=== PATIENT | male | born 1955 | race Caucasian/White ===

== ENCOUNTER 2017-06-30 11:29 | Emergency (ER) | payer OTHER ==
--- NOTE | 2017-06-30 12:11 | UC ---
[facility] HPI - HPI Summary HPI Summary: 61 YEAR OLD MALE PRESENTS WITH SEVERE RIGHT LOWER JAW PAIN SECONDARY TO A MOLAR ABSCESS. - History of Current Complaint Chief Complaint: UCDentalProblem Stated Complaint: SORE THROAT TOOTH PAIN Time Seen by Provider: 06/30/17 11:37 Hx Obtained From: Patient Onset/Duration: Sudden Onset Severity: Moderate Pain Scale Used: 0-10 Numeric - 8 - Allergies/Home Medications Allergies/Adverse Reactions: Allergies Allergy/AdvReac Type Severity Reaction Status Date / Time No Known Allergies Allergy Verified 06/30/17 11:39 Home Medications: Home Medications Naproxen Sodium [Naproxen Sodium 220 mg] 440 mg PO PRN 06/30/17 [History] PMH/Surg Hx/FS Hx/Imm Hx Previously Healthy: Yes - Surgical History Surgical History: Yes Surgery Procedure, Year, and Place: knee surgery x2 on right, once on left - Social History Alcohol Use: Occasionally Alcohol Amount: beer Substance Use Type: None Smoking Status (MU): Heavy Every Day Tobacco Smoker Type: Cigarettes Length of Time of Smoking/Using Tobacco: 1/2 ppd Household Exposure Type: Cigarettes Review of Systems Constitutional: Negative Skin: Negative Eyes: Negative ENT: Dental Pain Respiratory: Negative Cardiovascular: Negative Gastrointestinal: Negative Genitourinary: Negative Motor: Negative Neurovascular: Negative Musculoskeletal: Negative Neurological: Negative Psychological: Negative All Other Systems Reviewed And Are Negative: Yes Physical Exam Triage Information Reviewed: Yes Vital Signs: Initial Vital Signs Temp 36.8 C 06/30/17 11:40 Pulse 72 06/30/17 11:40 Resp 16 06/30/17 11:40 BP 182/92 06/30/17 11:40 Pulse Ox 100 06/30/17 11:40 Vital Signs Reviewed: Yes Eye Exam: Normal ENT Exam: Normal Dental: Positive: Abscess @ Neck exam: Normal Neck: Positive: 1 Respiratory Exam: Normal Cardiovascular Exam: Normal Abdominal Exam: Normal Musculoskeletal Exam: Normal Neurological Exam: Normal Psychological Exam: Normal Skin Exam: Normal Dental Complaint Course/Dx - Differential Dx/Diagnosis Provider Diagnoses: RIGHT DENTAL ABSCESS Discharge - Discharge Plan Condition: Stable Disposition: HOME Prescriptions: Amoxicillin/Clavulanate TAB* [Augmentin TAB 875*] 875 mg PO BID #20 tab Chlorhexidine MOUTHWASH 0.12%* [Peridex Mouth Wash 0.12%*] 15 ml MT TID PC #1 btl Magic M W2 Tony/Maal/Nyst/Lido* 5 ml SWISH SPIT QID PRN #120 ml PRN Reason: Pain Naproxen [Naprosyn 500 mg] 500 mg PO BID PRN #30 tab PRN Reason: Pain Patient Education Materials: Dental Abscess (ED) Referrals: Juan Manuel Ardon MD [Medical Doctor] -
[2017-06-30 12:30] VITALS: BP 190/94
== END 2017-06-30 12:26 | disposition home or self-care (01) ==
LOC: UCCORT 11:29
DX: K04.7 Periapical abscess without sinus (principal); F17.210 Nicotine dependence, cigarettes, uncomplicated
CPT/HCPCS: 87651; 99202; G0463

== ENCOUNTER 2017-10-16 10:23 | Emergency (ER) | payer OTHER ==
[2017-10-16 11:27] VITALS: BP 156/85
[2017-10-16] MEDS ORDERED: cefTRIAXone VIAL(*) 250 MG VIAL IM ONE (11:43)
[2017-10-16] MEDS ORDERED: Lidocaine 1% MPF* 2 ML VIAL ONE (11:53)
--- NOTE | 2017-10-16 12:05 | ED ---
Throat Pain/Nasal Congestion - HPI Summary HPI Summary: Patient presents to the with CC of right lower jaw pain and swelling. He states he has 2 teeth that continue to bother him and needs to have them pulled. He has not made an appt, but has a dentist. He has had this infection a few times. Pain is throbbing, 10/10 and radiates to the ear and neck. Also endorses throat pain. Denies sick contacts. Smoker, but otherwise healthy. - History of Current Complaint Chief Complaint: UCDentalProblem Time Seen by Provider: 10/16/17 11:30 Hx Obtained From: Patient Onset/Duration: Gradual Onset Severity: Moderate Associated Signs And Symptoms: Positive: Dysphagia. Negative: Drooling, Wheezing, Hoarseness - Epiglottits Risk Factors Epiglottis Risk Factors: Negative - Allergies/Home Medications Allergies/Adverse Reactions: Allergies Allergy/AdvReac Type Severity Reaction Status Date / Time No Known Allergies Allergy Verified 10/16/17 11:12 Home Medications: Home Medications Hydrocodone/APAP 5/300 (NF) [Vicodin 5 MG/300 MG(NF)] 1 tab PO Q4H PRN 10/16/17 [History Confirmed 10/16/17] PMH/Surg Hx/FS Hx/Imm Hx Previously Healthy: Yes Endocrine/Hematology History: Denies: Hx Diabetes, Hx Thyroid Disease Cardiovascular History: Denies: Hx Hypertension Respiratory History: Denies: Hx Asthma, Hx Chronic Obstructive Pulmonary Disease (COPD) GI History: Denies: Hx Ulcer - Surgical History Surgery Procedure, Year, and Place: knee surgery x2 on right, once on left - Immunization History Hx Pertussis Vaccination: No Immunizations Up to Date: Unable to Obtain/Confirm Infectious Disease History: No Infectious Disease History: Denies: Hx Clostridium Difficile, Hx Hepatitis, Hx Human Immunodeficiency Virus (HIV), Hx of Known/Suspected MRSA, Hx Shingles, Hx Tuberculosis, Traveled Outside the [place] in Last 30 Days - Social History Occupation: Employed Full-time Lives: With Family Alcohol Use: Occasionally Alcohol Amount: beer Hx Substance Use: No Substance Use Type: Reports: None Hx Tobacco Use: Yes Smoking Status (MU): Former Smoker Type: Cigarettes Length of Time of Smoking/Using Tobacco: 1/2 ppd Review of Systems Constitutional: Negative Negative: Fever, Chills, Fatigue Eyes: Negative Positive: Dental Pain, Sore Throat Cardiovascular: Negative Respiratory: Negative Positive: no symptoms reported, see HPI Musculoskeletal: Negative Psychological: Normal All Other Systems Reviewed And Are Negative: Yes Physical Exam Triage Information Reviewed: Yes Vital Signs On Initial Exam: Initial Vitals Temp Pulse Resp BP Pulse Ox 100.3 F 106 20 156/85 99 10/16/17 11:17 10/16/17 11:17 10/16/17 11:17 10/16/17 11:17 10/16/17 11:17 Vital Signs Reviewed: Yes Appearance: Positive: Well-Appearing, Well-Nourished Skin: Positive: Warm, Skin Color Reflects Adequate Perfusion Head/Face: Positive: Normal Head/Face Inspection ENT: Positive: Pharyngeal erythema, Dental tenderness. Negative: Tonsillar swelling, Tonsillar exudate, Sinus tenderness, Uvula midline Dental: Positive: Percussion Tenderness @ - right lower jaw, Abscess @ - no abscess visualized Neck: Positive: No Lymphadenopathy Respiratory/Lung Sounds: Positive: Clear to Auscultation, Breath Sounds Present Cardiovascular: Positive: RRR, Pulses are Symmetrical in both Upper and Lower Extremities Musculoskeletal: Positive: Normal, Strength/ROM Intact Neurological: Positive: Speech Normal Psychiatric: Positive: Affect/Mood Appropriate Diagnostics - Vital Signs Vital Signs Temp Pulse Resp BP Pulse Ox 10/16/17 11:17 100.3 F 106 20 156/85 99 - Laboratory Lab Results: Lab Results 10/16/17 Range/Units 11:36 Group A Strep Rapid Negative (Negative) Lab Statement: Any lab studies that have been ordered have been reviewed, and results considered in the medical decision making process. EENT Course/Dx - Course Course Of Treatment: Patient is evaluated for lower jaw pain and swelling. No signs of cellulitis. He is given 250mg Ceftriaxone. Clindamycin 300mg four times daily and pain control given. Magic mouthwash ordered and encouraged cepacol tabs. He will follow up with dentist ISABELA and he is given strict return precautions for worsneing swelling or pain, or fevers, sweats or chills. - Diagnoses Provider Diagnoses: Dental infection Discharge - Discharge Plan Condition: Stable Disposition: HOME Prescriptions: Clindamycin Cap(NF) [Clindamycin Cap 300 mg Cap(NF)] 300 mg PO Q6H #28 cap Magic Mouth Was-BECKI/MAAL/LIDO* 5 ml SWISH SWAL QID #100 ml Oxycodone TAB(NF) [Oxycodone HCl 10 MG] 10 mg PO Q6H PRN #16 tab MDD 4 PRN Reason: Pain Patient Education Materials: Dental Abscess (ED) Referrals: No Primary Care Phys,NOPCP [Primary Care Provider] - Additional Instructions: Cepacol tabs Chloraseptic spray Oxycodone up to four times daily for pain Ibuprofen 600mg three times daily for inflammation Magic mouth wash up to four times daily Salt water rinses 3 times daily Clindamycin four times daily for 7 days Images - Images Dental: 1 - dental pain
== END 2017-10-16 12:24 | disposition home or self-care (01) ==
LOC: UCCORT 10:23
DX: K04.7 Periapical abscess without sinus (principal); Z87.891 Personal history of nicotine dependence
CPT/HCPCS: 87651; 96372; 99212; G0463; J0696